=== PATIENT | male | born 1985 | race American Indian/Alaskan Native ===

== ENCOUNTER 2016-09-01 23:14 | Emergency (ER) | payer OTHER ==
[2016-09-01] MEDS ORDERED: MOTRIN PO ONE ×2 (23:21→23:24)
[2016-09-01 23:23] VITALS: BP 161/103
[2016-09-02] MEDS ORDERED: NORCO 7.5/325 ONE (02:40)
[2016-09-02] MEDS ORDERED: NORCO 7.5/325 PO ONE (02:48)
--- NOTE | 2016-09-02 04:11 | Emergency Department Report ---
ED ENT HPI - General Chief complaint: Dental/Oral Stated complaint: TOOTHACHE/MOUTH PAIN Time Seen by Provider: 09/02/16 04:05 Source: patient Mode of arrival: Ambulatory Limitations: No Limitations - History of Present Illness Initial comments: 31-year-old -Stateless male comes in for complaint of tooth pain that started about 3 days ago and has gotten worse today. Patient denies any fever chills nausea vomiting. He reports he thinks he has a bad tooth. Was noted that his pressure was elevated at triage at 161/103. Patient reports that he is not on any blood pressure medications. MD complaint: tooth pain - Related Data Previous Rx's Medication Instructions Recorded Last Taken Type Acetaminophen/Codeine [Tylenol 1 tab PO Q6H PRN #12 tab 09/02/16 Unknown Rx /Codeine # 3 tab] Clindamycin [Clindamycin CAP] 300 mg PO Q8H #30 cap 09/02/16 Unknown Rx Ibuprofen [Motrin 800 MG tab] 800 mg PO Q8HR PRN #30 tablet 09/02/16 Unknown Rx Allergies Allergy/AdvReac Type Severity Reaction Status Date / Time No Known Allergies Allergy Verified 09/01/16 23:26 ED Dental HPI - General Chief complaint: Dental/Oral Stated complaint: TOOTHACHE/MOUTH PAIN Time Seen by Provider: 09/02/16 04:05 Source: patient Mode of arrival: Ambulatory Limitations: No Limitations - Related Data Previous Rx's Medication Instructions Recorded Last Taken Type Acetaminophen/Codeine [Tylenol 1 tab PO Q6H PRN #12 tab 09/02/16 Unknown Rx /Codeine # 3 tab] Clindamycin [Clindamycin CAP] 300 mg PO Q8H #30 cap 09/02/16 Unknown Rx Ibuprofen [Motrin 800 MG tab] 800 mg PO Q8HR PRN #30 tablet 09/02/16 Unknown Rx Allergies Allergy/AdvReac Type Severity Reaction Status Date / Time No Known Allergies Allergy Verified 09/01/16 23:26 ED Review of Systems ROS: Stated complaint: TOOTHACHE/MOUTH PAIN Other details as noted in HPI Constitutional: denies: chills, fever Eyes: denies: eye pain, eye discharge, vision change ENT: dental pain Respiratory: denies: cough, shortness of breath, wheezing Cardiovascular: denies: chest pain, palpitations Endocrine: no symptoms reported Gastrointestinal: denies: abdominal pain, nausea, diarrhea Genitourinary: denies: urgency, dysuria Musculoskeletal: denies: back pain, joint swelling, arthralgia Skin: denies: rash, lesions ED Past Medical Hx - Past Medical History Previous Medical History?: Yes Hx Hypertension: Yes - Surgical History Past Surgical History?: Yes Additional Surgical History: [place] teeth extracted - Social History Smoking Status: Never Smoker Substance Use Type: None - Medications Home Medications: Home Medications Medication Instructions Recorded Confirmed Last Taken Type Acetaminophen/Codeine [Tylenol 1 tab PO Q6H PRN #12 tab 09/02/16 Unknown Rx /Codeine # 3 tab] Clindamycin [Clindamycin CAP] 300 mg PO Q8H #30 cap 09/02/16 Unknown Rx Ibuprofen [Motrin 800 MG tab] 800 mg PO Q8HR PRN #30 tablet 09/02/16 Unknown Rx ED Physical Exam - General Limitations: No Limitations General appearance: alert, in no apparent distress - Head Head exam: Present: atraumatic, normocephalic - Eye Eye exam: Present: normal appearance - Expanded ENT Exam Expanded Teeth exam: Present: dental caries (12). Absent: fractured tooth #, dental tenderness #, gingival enlargement ED Course Vital Signs 09/01/16 09/02/16 23:19 02:50 Temperature 98.9 F Pulse Rate 82 Respiratory 16 18 Rate Blood Pressure 161/103 Blood Pressure 161/103 [Left] O2 Sat by Pulse 96 Oximetry ED Medical Decision Making - Medical Decision Making Patient has been evaluated by this provider in fast track. Discussed with patient I do not see that there is an abscess but I do note that there is a Very thin tooth #12 and also in between tooth 11 and 12. Discussed the patient PAIN MEDICATION AND HAVE HIM FOLLOW-UP WITH ONE OF THE DENTISTS. PATIENT VERBALIZED UNDERSTANDING. Critical care attestation.: If time is entered above; I have spent that time in minutes in the direct care of this critically ill patient, excluding procedure time. ED Disposition Clinical Impression: Dental caries Disposition: DISCHARGED TO HOME OR SELFCARE Is pt being admited?: No Does the pt Need Aspirin: No Condition: Stable Instructions: Dental Caries (ED) Additional Instructions: Please take pain medication and antibiotics as prescribed. Please follow up with a dentist to have teeth evaluated. Prescriptions: Acetaminophen/Codeine [Tylenol /Codeine # 3 tab] 1 tab PO Q6H PRN #12 tab PRN Reason: Pain Clindamycin [Clindamycin CAP] 300 mg PO Q8H #30 cap Ibuprofen [Motrin 800 MG tab] 800 mg PO Q8HR PRN #30 tablet PRN Reason: Pain Referrals: PRIMARY CARE,MD [Primary Care Provider] - 3-5 Days [facility] [Outside] - 3-5 Days Forms: Work/School Release Form(ED)
== END 2016-09-02 04:30 | disposition home or self-care (01) ==
LOC: ED 23:14
DX: K02.9 Dental caries, unspecified (principal); I10 Essential (primary) hypertension
CPT/HCPCS: 99282

== ENCOUNTER 2016-11-15 18:18 | Emergency (ER) | payer OTHER ==
[2016-11-15] MEDS ORDERED: MOTRIN ONE (18:50)
[2016-11-15] MEDS ORDERED: MOTRIN PO ONE (18:52)
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
[2016-11-15] MEDS ORDERED: TORADOL IM ONE (21:37)
[2016-11-15 22:17] VITALS: BP 159/98
== END 2016-11-15 22:19 | disposition home or self-care (01) ==
LOC: ED 18:18
DX: K02.9 Dental caries, unspecified (principal); K05.10 Chronic gingivitis, plaque induced; I10 Essential (primary) hypertension; F17.200 Nicotine dependence, unspecified, uncomplicated
CPT/HCPCS: 96372; 99282; J1885

== ENCOUNTER 2020-12-12 02:13 | Emergency (ER) | payer SELFPAY ==
[2020-12-12] MEDS ORDERED: IBUPROFEN 800 MG TAB PO ONE (03:38)
--- NOTE | 2020-12-12 04:25 | XRay Report ---
CHEST 1 VIEW INDICATION / CLINICAL INFORMATION: pain in the ribs and back. Chest pain FINDINGS: SUPPORT DEVICES: None. HEART / MEDIASTINUM: No significant abnormality. LUNGS / PLEURA: No significant pulmonary or pleural abnormality. No pneumothorax. ADDITIONAL FINDINGS: No significant additional findings. IMPRESSION: 1. No acute findings. Signer Name: Milo Askew MD Signed: 12/12/2020 4:21 AM Workstation Name: [id number]
[2020-12-12] MEDS ORDERED: HYDROGEN PEROXIDE 118 ML SOLUTION TP ONE (05:10)
[2020-12-12] MEDS ORDERED: oxyCODONE /ACETAMINOPHEN 5-325MG TAB PO ONE (06:15)
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
[2020-12-12 07:12] VITALS: BP 169/80
== END 2020-12-12 07:11 | disposition home or self-care (01) ==
LOC: ED 02:13
DX: R07.81 Pleurodynia (principal); M79.645 Pain in left finger(s); L03.012 Cellulitis of left finger; I10 Essential (primary) hypertension
CPT/HCPCS: 71045; 99283